=== PATIENT | female | born 1965 | race Caucasian/White ===

== ENCOUNTER → 2021-11-11 | Outpatient (CLI) | payer OTHER ==
[~2021-11-11] MED LIST: ASPI81EC PO; CEPH500; HYDACE5 PO; RXHYDACE PO; RXSULTRIDS PO; SULTRIDS PO
[2021-11-12 15:10] LABS: HPV 16 Negative (Negative); HPV 18 Negative (Negative); HPV OTHER HR TYPES Negative (Negative)
== END | disposition home or self-care (01) ==
LOC: LAB SHORT 11:15 → LAB 11:15
PROVIDERS: Family Medicine
DX: Z01.419 Encounter for gynecological examination (general) (routine) without abnormal findings (principal)
CPT/HCPCS: 87624; G0123

== ENCOUNTER 2021-12-09 03:28 | Emergency (ER) | payer OTHER ==
[~2021-12-09] VITALS: Ht 167.6 cm; Wt 152.9 kg
[2021-12-09] MEDS ORDERED: DOXY100 PO (05:15)
== END 2021-12-09 05:21 | disposition home or self-care (01) ==
LOC: ER 03:28
DX: L03.211 Cellulitis of face (principal); E66.9 Obesity, unspecified; Z88.0 Allergy status to penicillin; Z88.8 Allergy status to other drugs, medicaments and biological substances
CPT/HCPCS: A9270

== ENCOUNTER → 2023-09-11 | Outpatient (CLI) | payer OTHER ==
[~2023-09-11] MED LIST changes: +DOXY100 PO
== END ==
LOC: LAB SHORT 12:40 → LAB 12:40
DX: L02.91 Cutaneous abscess, unspecified (principal)
CPT/HCPCS: 87070; 87075; 87205

== ENCOUNTER 2024-11-29 08:55 | Emergency (ER) | payer OTHER ==
[~2024-11-29] VITALS: Ht 167.6 cm; Wt 154.2 kg
[2024-11-29 09:06] VITALS: BP 130/82
[2024-11-29] MEDS ORDERED: Bactrim Ds Tab1 EACH PO (09:43)
== END 2024-11-29 09:53 | disposition home or self-care (01) ==
LOC: ER 08:55
DX: L03.115 Cellulitis of right lower limb (principal); E11.9 Type 2 diabetes mellitus without complications; F17.200 Nicotine dependence, unspecified, uncomplicated
CPT/HCPCS: 82947; 99283-25